=== PATIENT | female | born 2000 | race Caucasian/White ===

== ENCOUNTER 2020-03-26 10:46 | Emergency (ER) | payer OTHER ==
[~2020-03-26] VITALS: Ht 180.3 cm; Wt 59.0 kg
[2020-03-26] MEDS ORDERED: AMITRIPTYLINE H10 M1 PO (10:59)
[2020-03-26] MEDS ORDERED: SERTRALINE HCL100 MG PO (10:59)
[2020-03-26] MEDS ORDERED: MAXALT10 MG PO (11:00)
[2020-03-26] MEDS ORDERED: VALACYCLOVIR500 MG PO (11:01)
[2020-03-26] MEDS ORDERED: REGLAN 5 MG TAB5 MG PO (12:57)
[2020-03-26 13:15] VITALS: BP 111/71
== END 2020-03-26 13:16 | disposition home or self-care (01) ==
LOC: ER 10:46
DX: G43.909 Migraine, unspecified, not intractable, without status migrainosus (principal); R11.2 Nausea with vomiting, unspecified; F17.210 Nicotine dependence, cigarettes, uncomplicated; Z79.899 Other long term (current) drug therapy; Z88.8 Allergy status to other drugs, medicaments and biological substances